=== PATIENT | female | born 1935 | race Caucasian/White ===

== ENCOUNTER 2017-12-14 13:03 | Emergency (ER) | payer MEDICARE, MEDICAID ==
[2017-12-14] MEDS ORDERED: traMADol TAB* 50 MG PO ONE ×2 (13:28→16:10)
--- OUTSIDE RECORDS SUMMARY | 2017-12-14 13:50 | XMS REPORT ---
:1935 External Reference #:[id number] Author Organization [employer] Address [address] [place] [address] [place] [address] Phone [phone] Care Team Providers Name Role Phone Sabina Rangel MD Primary Care Physician Unavailable Payers Type Date Identification Numbers Payment Provider Subscriber Medicare Primary Policy Number: [id number] Medicare Patricia Person PayID: [id number] [address] [place] [address] [facility] Part B Policy Number: [id number] Medicaid Patricia Person Group Name: 1 1 [address] PayID: [id number] [place] [address] Problems Date Description Provider Status Onset: 12/05/2017 Localized, primary osteoarthritis Addis Villalba M.D. Active Family History Date Family Member(s) Problem(s) Comments General No Current Problems Social History Type Date Description Comments Lives With Adult family home ETOH Use Drinks 1 Alcoholic Beverage Per Week Smoking Patient is a former smoker Exercise Type/Frequency Exercises sporadically Allergies, Adverse Reactions, Alerts Date Description Reaction Status Severity Comments 12/05/2017 NKDA active Medications Medication Date Status Form Strength Qnty SIG Indications Ordering Provider Tramadol HCL 12/05/ Active Tablets 50mg 90tabs 1 tab every Addis 2017 8 hours as Deejay, needed for M.DJcarlos pain Compression Active Misc 2units 20/30 thigh Addis Stockings 2017 high Endy Villalba Omeprazole / Active Capsules 20mg 1 by mouth Unknown 0000 DR every day B12 Fast 00/ Active Tablets 5000mcg sublingual Unknown Dissolve 0000 Dispers daily Amlodipine / Active Tablets 10mg 1 by mouth Unknown Besylate 0000 every day Lipitor / Active Tablets 10mg 1 by mouth Unknown 0000 every night at bedtime Singulair / Active Tablets 10mg 1 by mouth Unknown 0000 every day Magox 400 / Active Tablets 400(241.3m 1 by mouth Unknown 0000 g) mg twice a day ( taking 1 tablet by mouth daily ) Atenolol / Active Tablets 25mg 1 by mouth Unknown 0000 bid Calcium 500+D / Active Tablets 500-200mg- 1 by mouth Unknown 0000 Unit twice daily Clonazepam / Active Tablets 1mg q12H Unknown 0000 Symbicort / Active Aerosol 160-4.5mcg 2 puff twice Unknown 0000 /Act a day Medications Administered in Office Medication Date Status Form Strength Qnty SIG Indications Ordering Provider Triamcinolone 12/05/ Administered Injection Addis (Kenalog) 2017 Endy Villalba Triamcinolone 12/05/ Administered Injection Addis (Kenalog) 2017 Endy Villalba Vital Signs Date Vital Result Comment 12/05/2017 Heart Rate 67 /min BP Systolic 110 mmHg BP Diastolic 60 mmHg Respiratory Rate 16 /min Body Temperature 98.8 F Pain Level 8 Results Description No Information Procedures Date CPT Code Description Status 12/05/201744210 Inject/Drain Joint/Bursa Major W/O US Completed 12/05/201704012 Inject/Drain Joint/Bursa Major W/O US Completed Plan of Care Future Appointment(s):03/09/2018 9:30 am - [facility] - Addis Villalba M.D.M25.562 Pain in left kneeFollow up:Follow up: 4 inlwrD58.561 Pain in right kneeM25.462 Effusion, left kneeM25.461 Effusion, right kneeM17.0 Bilateral primary osteoarthritis of knee
--- NOTE | 2017-12-14 14:07 | ED ---
Complex/Multi-Sys Presentation - HPI Summary HPI Summary: A 82 y/o female TESSA presents to ED c/o diffuse cramps throughout her body reaching 4/10 in severity. As per triage, "Pt with c/o bialteral knee, ankle and hand cramping d/t arthitis. Pt is has been unable to sleep for two weeks d/ t the pain". According to the patient, for the past couple weeks she has been experiencing cramps in her feels and hands as well as her knees. She noted that she has osteoarthritis in her knees and has received shots in both of him from Dr. Villalba. She is also scheduled for an appointment with Dr. Villalba for shots in her fingers. She thinks the cramps are acting up because of her fatigue. She stated that laying down or ambulance causes cramps, making it difficult to complete routine activities and sleep. She noted that she does have pain in her legs as they feel as "they are made of plaster (heavy)". The patient can walk ( has a walker) after the cramps as gone down. Patient is a resident at [facility] and has only received Tylenol for her pain, no muscle relaxants. In the ED room , the patient had several cramp episodes and is in obvious distress. She requested sleep and pain medication. PMHx of osteoarthritis and anxiety attacks. - History Of Current Complaint Chief Complaint: EDGeneral Time Seen by Provider: 12/14/17 13:16 Hx Obtained From: Patient Onset/Duration: Sudden Onset, Lasting Weeks, Still Present Timing: Constant Severity Currently: Moderate - 4/10 Severity Initially: Moderate - 4/10 Location: Negative Aggravating Factor(s): NOTHING Alleviating Factor(s): NOTHING - Allergies/Home Medications Allergies/Adverse Reactions: Allergies Allergy/AdvReac Type Severity Reaction Status Date / Time alendronate sodium Allergy Unknown Verified 12/14/17 13:27 [From Fosamax] Reaction Details Home Medications: Home Medications Magnesium Oxide [Magnesium] 400 mg PO BID 12/14/17 [History Confirmed 12/14/17] Nabumetone TAB* [Relafen TAB*] 500 mg PO BID 12/14/17 [History Confirmed ] Omeprazole CAP* [Prilosec CAP* 20 MG] 1 cap PO DAILY 12/14/17 [History Confirmed 12/14/17] Polyethylene Glycol 3350 [Miralax] 1 packet PO DAILY PRN 12/14/17 [History Confirmed 12/14/17] traMADol TAB* [Ultram*] 25 mg PO Q6H PRN 12/14/17 [History Confirmed 12/14/17] PMH/Surg Hx/FS Hx/Imm Hx Endocrine/Hematology History: Denies: Hx Diabetes Cardiovascular History: Denies: Hx Hypertension Sensory History: Reports: Hx Glaucoma, Hx Macular Degeneration - Cancer History Cancer Type, Location and Year: Left lung cancer - Surgical History Surgery Procedure, Year, and Place: Left lung surgery, eye surgery, appendectomy and tonsilectomy. Infectious Disease History: No Infectious Disease History: Denies: Traveled Outside the [place] in Last 30 Days - Family History Known Family History: Positive: Other - AR and dementia Negative: Hypertension, Diabetes - Social History Alcohol Use: None Substance Use Type: Reports: None Smoking Status (MU): Former Smoker - Last smoke was 1978. Review of Systems Positive: Fatigue. Negative: Fever Positive: Other - POSITIVE: Leg pain, diffuse cramps All Other Systems Reviewed And Are Negative: Yes Physical Exam - Summary Physical Exam Summary: Appearance: Well appearing, no pain distress Skin: warm, dry, reflects adequate perfusion Head/face: normal Eyes: EOMI, DANIEL ENT: normal Neck: supple, non-tender Respiratory: CTA, breath sounds present Cardiovascular: RRR, pulses symmetrical Abdomen: non-tender, soft Bowel: present Musculoskeletal: bilateral calf tenderness, strength/ROM intact Neuro: normal, sensory motor intact, A&Ox3 Triage Information Reviewed: Yes Vital Signs On Initial Exam: Initial Vitals Temp Pulse Resp BP Pulse Ox 98.7 F 58 19 146/59 95 12/14/17 13:04 12/14/17 13:04 12/14/17 13:04 12/14/17 13:04 12/14/17 13:04 Vital Signs Reviewed: Yes Diagnostics - Vital Signs Vital Signs Temp Pulse Resp BP Pulse Ox 12/14/17 13:04 98.7 F 58 19 146/59 95 - Laboratory Result Diagrams: 12/14/17 14:20 12/14/17 14:20 Lab Statement: Any lab studies that have been ordered have been reviewed, and results considered in the medical decision making process. - Ultrasound No standard instances Ultrasound Interpretation Completed By: Radiologist - Venous Doppler Study: No sonographic evidence of deep vein thrombosis. ED PHYSICIAN REVIEWED THIS RADIOLOGY REPORT. Re-Evaluation - Re-Evaluation First Eval Re-Evaluation Time: 15:40 Comment: Discussed plan and discharge with patient. Complex Multi-Symp Course/Dx Course Of Treatment: A 82 y/o female TESSA presents to ED c/o diffuse cramps throughout her body reaching 4/10 in severity. According to the patient, for the past couple weeks she has been experiencing cramps in her feels and hands as well as her knees. A US and blood work was done which was all in normal limits. In the ED course, the patient recieved Ultram. Patient will be discharged with a diagnosis of musculoskeletal pain and leg cramps. Patient is to follow up with PCP in 3 days. Patient is agreeable with this plan. - Diagnoses Differential Diagnoses/HQI/PQRI: Other - musculoskeletal pain/leg cramps Provider Diagnoses: Musculoskeletal pain, Leg cramps Discharge - Sign-Out/Discharge Documenting (check all that apply): Patient Departure - DISCHARGE - Discharge Plan Condition: Stable Disposition: HOME Prescriptions: traMADol TAB* [Ultram*] 50 mg PO Q12H PRN #10 tab MDD 2 PRN Reason: Pain Patient Education Materials: Leg Cramps (ED), Musculoskeletal Pain (ED), Muscle Cramp (ED) Referrals: Sabina Rangel MD [Primary Care Provider] - 3 Days Additional Instructions: FOLLOW UP WITH PRIMARY CARE IN 3 DAYS. TAKE MEDICATION PRESCRIBED. RETURN TO ED FOR ANY NEW OR WORSENING SYMPTOMS. - Billing Disposition and Condition Condition: STABLE Disposition: Home - Attestation Statements Document Initiated by Martin: Yes Documenting Scribe: Joselo Eisenberg Provider For Whom Martin is Documenting (Include Credential): Rylan Rolle MD Scribe Attestation: Joselo Camara, scribed for Rylan Rolle MD on 12/14/17 at 1746. Scribe Documentation Reviewed: Yes Provider Attestation: The documentation as recorded by the Joselo mai accurately reflects the service I personally performed and the decisions made by me, Rylan Rolle MD
[2017-12-14 14:26] LABS: ABS Basophils 0 10^3/ul (0-0.2); ABS Eosinophils 0.1 10^3/ul (0-0.6); ABS Lymphocytes 1.6 10^3/ul (1.0-4.8); ABS Monocytes 1.1 10^3/ul (0-0.8); ABS Neutrophils 7.7 10^3/ul (1.5-7.7); ABS Nucleated RBC 0 10^3/ul; Eosinophil % 0.9 % (0-6); Hematocrit 33 % (35-47); Hemoglobin 11.2 g/dl (12.0-16.0); Lymphocyte % 15.5 % (25-47); Mean Corpuscular HGB Conc 34 g/dl (31-36); Mean Corpuscular Hemoglobin 30 pg (27-31); Mean Corpuscular Volume 89 fL (80-97); Mean Platelet Volume 7.1 um3 (7.4-10.4); Nucleated Red Blood Cells % 0; Platelet Count 326 10^3/ul (150-450); Red Blood Count 3.71 10^6/ul (4.00-5.40); Red Cell Distribution Width 16 % (10.5-15); White Blood Count 10.5 10^3/ul (3.5-10.8)
[2017-12-14 14:47] LABS: EGFR Non-African American 55.4 (>60)
--- NOTE | 2017-12-14 14:58 | RAD ---
HISTORY: Bilateral extremity pain TECHNIQUE: Multiple transverse and longitudinal ultrasound images were obtained of the veins of the bilateral lower extremities using grayscale, color Doppler, and spectral Doppler imaging with and without compression and with augmentation. FINDINGS: VEINS: The common femoral vein, deep femoral vein, femoral vein and popliteal vein are compressible throughout their course, with normal flow on color Doppler imaging and normal response to augmentation on spectral Doppler imaging. SOFT TISSUES: Grossly normal. No large popliteal fossa cyst was identified. IMPRESSION: No sonographic evidence of deep vein thrombosis.
[2017-12-14 16:25] VITALS: BP 148/65
== END 2017-12-14 16:24 | disposition home or self-care (01) ==
LOC: ED 13:03
DX: M79.605 Pain in left leg (principal); M79.604 Pain in right leg; M62.838 Other muscle spasm; Z85.118 Personal history of other malignant neoplasm of bronchus and lung; Z88.8 Allergy status to other drugs, medicaments and biological substances; Z87.891 Personal history of nicotine dependence
CPT/HCPCS: 36415; 80053; 82550; 85025; 93970; 99284; A9270-GY

== ENCOUNTER 2018-12-04 15:55 | Emergency (ER) | payer MEDICARE, MEDICAID ==
--- OUTSIDE RECORDS SUMMARY | 2018-12-04 16:17 | XMS REPORT | Continuity of Care Document ---
:1935 External Reference #:[id number] Author Name Dolly Chin Care Team Providers Name Role Phone Sabina Rangel MD Primary Care Physician Unavailable Payers Date Identification Numbers Payment Provider Subscriber Policy Number: [id number] Medicare Patricia Person PayID: [id number] [address] [place] [address] Expires: 2018 Policy Number: [id number] Medicare Patricia Person PayID: [id number] [address] [place] [address] Expires: 2018 Policy Number: [id number] Medicaid Patricia Person Group Name: 1 1 [address] PayID: [id number] [place] [address] Problems Active Problems Provider Date Localized, primary osteoarthritis Addis Villalba M.D. Onset: 12/05/2017 Family History Date Family Member(s) Observation Comments General No Current Problems Social History Type Date Description Comments Sex Unknown Lives With Adult family home ETOH Use Drinks 1 Alcoholic Beverage Per Week Tobacco Use Start: Unknown End: Patient is a former smoker Unknown Smoking Status Reviewed: 11/27/18 Patient is a former smoker Exercise Type/Frequency Exercises sporadically Allergies, Adverse Reactions, Alerts Active Allergies Reaction Severity Comments Date Fosamax 09/09/2018 Statins 09/09/2018 Uswkpmw-VUK-Pxy Reductase Inhibitors 09/09/2018 Inactive Allergies NKDA 12/05/2017 Medications Active Medications SIG Qnty Indications Ordering Date Provider Compression Stockings 20/30 thigh high 2units Addis Villalba 12/05/2017 Endy Misc Ibuprofen Unknown Tussin Unknown Cyclobenzaprine HCL take 1 tab by mouth Unknown 10mg 2-3 times a day as Tablets needed Albuterol Sulfate Unknown Nebulizer prn Unknown Tylenol Extra Strength 2 by mouth 3 times Unknown daily as needed 500mg Tablets Polyethylene Glycol dissolve one capful Unknown 3350 (17g) in 8 ounces 3350 Granules of water by mouth every 48 hours as needed constipation Dicyclomine HCL pr Unknown 10mg Capsules Paroxetine HCL 1 by mouth every Unknown 20mg day Tablets Trazodone HCL take 1 tablets by Unknown 100mg mouth at bedtime Tablets Nabumetone take one Unknown 500mg Tablets capsule/tablet by mouth twice daily as needed for pain, please stop other nsaids Losartan Potassium 1 by mouth every Unknown 50mg day Tablets Clonazepam q12H Unknown 1mg Tablets Calcium 500+D 1 by mouth twice Unknown daily [id number] Tablets Atenolol 1 by mouth bid Unknown 25mg Tablets Magox 400 1 by mouth twice a Unknown 400(241.3mg) mg day ( taking 1 Tablets tablet by mouth daily ) Singulair 1 by mouth every Unknown 10mg Tablets day Amlodipine Besylate 1 by mouth every Unknown 10mg day Tablets B12 Fast Dissolve sublingual daily Unknown 5000mcg Tablets Dispers Omeprazole 1 by mouth every Unknown 20mg Capsules day DR History Medications Gabapentin 1 tab by mouth 30caps Addis Villalba, 12/16/2017 - 300mg Capsules before bed M.D. 03/05/2018 Cyclobenzaprine HCL take 1 tab by 30tabs Addis Villalba, 12/16/2017 - 10mg mouth before M.D. 12/15/2017 Tablets bed as needed Tramadol HCL 1 tab every 8 90tabs Addis Villalba, 12/05/2017 - 50mg Tablets hours as needed M.D. 09/08/2018 for pain Lipitor 1 by mouth every Unknown - 10mg Tablets night at bedtime 03/05/2018 Symbicort 2 puff twice a Unknown - 160-4.5mcg/Act day 12/16/2017 Aerosol Cetirizine HCL 1 by mouth every Unknown - 10mg Chewtabs day 11/26/2018 Hydrocodone 1 by mouth every Unknown - Bitartrate/Acetaminophen 6 hours as 11/26/2018 needed pain 5-325mg Tablets Cyclobenzaprine HCL take 1 tab by Unknown - 10mg mouth 2-3 times 11/26/2018 Tablets a day as needed Miralax Unknown - 11/26/2018 Acetaminophen 500mg Unknown - 11/26/2018 Medications Administered in Office Medication SIG Qnty Indications Ordering Provider Date Depomedrol 40MG Addis Villalba M.D. 09/09/2018 Injection Depomedrol 40MG Addis Villalba M.D. 09/09/2018 Injection Depomedrol 40MG Addis Villalba M.D. 06/10/2018 Injection Depomedrol 40MG Addis Villalba M.D. 06/10/2018 Injection Depomedrol 40MG Addis Villalba M.D. 03/09/2018 Injection Depomedrol 40MG Addis Villalba M.D. 03/09/2018 Injection Triamcinolone (Kenalog) Addis Villalba M.D. 12/05/2017 Injection Triamcinolone (Kenalog) Addis Villalba M.D. 12/05/2017 Injection Vital Signs Date Vital Result Comment 11/27/2018 8:07am Height 65 inches 5'5" Weight 127.00 lb BP Systolic 138 mmHg BP Diastolic 78 mmHg Body Temperature 97.9 F BMI (Body Mass Index) 21.1 kg/m2 09/09/2018 10:00am Heart Rate 80 /min BP Systolic 144 mmHg BP Diastolic 82 mmHg Respiratory Rate 16 /min Body Temperature 98.6 F Pain Level 10 06/10/2018 9:41am Heart Rate 65 /min BP Systolic 124 mmHg BP Diastolic 64 mmHg Respiratory Rate 18 /min Body Temperature 97.8 F Pain Level 5 03/09/2018 10:06am Heart Rate 59 /min BP Systolic Sitting 118 mmHg BP Diastolic Sitting 64 mmHg Body Temperature 97.7 F Pain Level 5 O2 % BldC Oximetry 97 % at rest on room air 12/05/2017 2:23pm Heart Rate 67 /min BP Systolic 110 mmHg BP Diastolic 60 mmHg Respiratory Rate 16 /min Body Temperature 98.8 F Pain Level 8 Procedures Date Code Description Status 09/09/2018 Inject/Drain Joint/Bursa Major W/O US Completed 06/10/2018 Inject/Drain Joint/Bursa Major W/O US Completed 03/09/2018 Inject/Drain Joint/Bursa Major W/O US Completed 12/05/2017 Inject/Drain Joint/Bursa Major W/O US Completed Encounters Type Date Location Provider Dx Diagnosis Office Visit 11/27/2018 [facility] Addis Villalba, M25.562 Pain in left knee 8:15a [facility] M25.561 Pain in right knee M25.462 Effusion, left knee M25.461 Effusion, right knee M17.0 Bilateral primary osteoarthritis of knee Office Visit 03/09/2018 9:30a [facility] Addis Villalba M25.562 Pain in left Of [facility] M.[facility] knee M25.561 Pain in right knee M25.462 Effusion, left knee M25.461 Effusion, right knee M17.0 Bilateral primary osteoarthritis of knee Office Visit 12/05/2017 2:00p [facility] Addis Villalba, M25.562 Pain in left [facility] M.DJcarlos knee M25.561 Pain in right knee M25.462 Effusion, left knee M25.461 Effusion, right knee M17.0 Bilateral primary osteoarthritis of knee Plan of Treatment Future Appointment(s):12/09/2018 9:15 am - Addis Villalba M.D. at [facility]11/27/2018 - Addis Villalba M.D.M25.562 Pain in left kneeNew Therapy:Physical TherapyFollow up:Follow up: None [id number] Pain in right kneeM25.462 Effusion, left kneeM25.461 Effusion, right kneeM17.0 Bilateral primary osteoarthritis of knee
--- NOTE | 2018-12-04 17:16 | ED ---
Adult Trauma - HPI Summary HPI Summary: Pt is an 83 y/o F presenting to the ED with a chief complaint of recent falls. She reports leg pain d/t her arthritis, increased falls, R eye and knee pain and bruising from her fall yesterday, as well as dizziness, lightheadedness, shaking, and feeling like she was going to . She denies LOC or nausea. - History of Current Complaint Chief Complaint: EDFall Stated Complaint: FALL/HEAD INJURY PER SON Time Seen by Provider: 12/04/18 16:46 Hx Obtained From: Patient Mechanism of Injury: Fall Loss of Consciousness: no loss of consciousness Onset/Duration: Started Hours Ago, Still Present Onset of Pain: Days Onset Severity: Moderate Current Severity: Severe Pain Intensity: 8 Pain Scale Used: 0-10 Numeric Location: Head - r eye, Extremities - bilat LE Aggravating Factor(s): Movement Alleviating Factor(s): Nothing Associated Signs & Symptoms: Positive: Ecchymosis. Negative: Nausea/Vomiting, Loss of Consciousness - Allergy/Home Medications Allergies/Adverse Reactions: Allergies Allergy/AdvReac Type Severity Reaction Status Date / Time alendronate sodium Allergy Unknown Verified 12/14/17 13:27 [From Fosamax] Reaction Details Home Medications: Home Medications Acetaminophen [Acetaminophen Extra Strength] 1,000 mg PO TID PRN MDD 3000 mg [History Confirmed 12/04/18] Albuterol 2.5MG/3ML (0.083%)* [Ventolin 2.5 MG/3 ML NEB.ANGEL LUIS*] 2.5 mg INH Q6H PRN 12/04/18 [History Confirmed 12/04/18] Calcium Carb/Vit D3/Minerals [Calcium 600+D Plus [place]] 1 tab PO BID 12/04/18 [ History Confirmed 12/04/18] Cyanocobalamin (Vitamin B-12) [Vitamin B-12] 2,500 mcg SL DAILY 12/04/18 [ History Confirmed 12/04/18] Cyclobenzaprine TAB* [Flexeril 10 MG TAB*] 10 mg PO BEDTIME PRN 12/04/18 [ History Confirmed 12/04/18] Diclofenac 1% GEL (NF) [Voltaren 1% GEL (NF)] 1 applic TOPICAL TID PRN 12/04/18 [History Confirmed 12/04/18] Lactose-Reduced Food [Boost] 237 ml PO BID 12/04/18 [History Confirmed 12/04/18] Losartan TAB* [Cozaar TAB*] 50 mg PO DAILY 12/04/18 [History Confirmed 12/04/18] Magnesium Oxide TAB* [MagOx 400 TAB*] 400 mg PO BID 12/04/18 [History Confirmed 12/04/18] Nabumetone TAB* [Relafen TAB*] 500 mg PO BID 12/04/18 [History Confirmed ] Omeprazole CAP (NF) [Prilosec CAP* 20 MG] 20 mg PO DAILY 12/04/18 [History Confirmed 12/04/18] PARoxetine HCL TAB* [Paxil TAB*] 20 mg PO DAILY 12/04/18 [History Confirmed ] Polyethylene Glycol 3350* [Miralax*] 17 gm PO DAILY 12/04/18 [History Confirmed 12/04/18] traZODone TAB* [Desyrel TAB*] 100 mg PO BEDTIME 12/04/18 [History Confirmed ] PMH/Surg Hx/FS Hx/Imm Hx Previously Healthy: Yes Endocrine/Hematology History: Denies: Hx Diabetes Cardiovascular History: Denies: Hx Hypertension Sensory History: Reports: Hx Glaucoma, Hx Macular Degeneration Opthamlomology History: Reports: Hx Glaucoma, Hx Macular Degeneration - Cancer History Cancer Type, Location and Year: Left lung cancer - Surgical History Surgery Procedure, Year, and Place: Left lung surgery, eye surgery, appendectomy and tonsilectomy. Infectious Disease History: No Infectious Disease History: Denies: Traveled Outside the [place] in Last 30 Days - Family History Known Family History: Positive: Other - [place] and dementia Negative: Hypertension, Diabetes - Social History Alcohol Use: Rare Alcohol Amount: "once in a [place]" Hx Substance Use: No Substance Use Type: Reports: None Hx Tobacco Use: Yes Smoking Status (MU): Former Smoker Review of Systems Positive: Chills, Other - increased falls Positive: Other - R eye pain Negative: Nausea Positive: Myalgia - R knee from fall Positive: Bruising Neurological: Negative - LOC, Other - lightheadedness, dizziness Positive: Other - "feeling like I was going to " All Other Systems Reviewed And Are Negative: Yes Physical Exam - Summary Physical Exam Summary: Appearance: The patient is well-nourished in no acute distress and in no acute pain. Skin: The skin is warm and dry and skin color reflects adequate perfusion. There is a skin tear present on the R knee, and a periorbital hematoma on the R eye. HEENT: The head is normocephalic and atraumatic. The pupils are equal and reactive. The conjunctivae are clear and without drainage. Nares are patent and without drainage. Mouth reveals moist mucous membranes and the throat is without erythema and exudate. The external ears are intact. The ear canals are patent and without drainage. The tympanic membranes are intact. Neck: The neck is supple with full range of motion and non-tender. There are no carotid bruits. There is no neck vein distension. Respiratory: Chest is non-tender. Lungs are clear to auscultation and breath sounds are symmetrical and equal. Cardiovascular: Heart is regular rate and rhythm. There is no murmur or rub auscultated. There is no peripheral edema and pulses are symmetrical and equal. Abdomen: The abdomen is soft and non-tender. There are normal bowel sounds heard in all four quadrants and there is no organomegaly palpated. Musculoskeletal: There is no back tenderness noted. Extremities are non-tender with full range of motion. There is good capillary refill. There is no peripheral edema or calf tenderness elicited. Neurological: Patient is alert and oriented to person, place and time. The patient has symmetrical motor strength in all four extremities. Cranial nerves are grossly intact. Deep tendon reflexes are symmetrical and equal in all four extremities. Psychiatric: The patient has an appropriate affect and does not exhibit any anxiety or depression. Triage Information Reviewed: Yes Vital Signs On Initial Exam: Initial Vitals Temp Pulse Resp BP Pulse Ox 97.7 F 66 16 142/65 96 12/04/18 15:57 12/04/18 15:57 12/04/18 15:57 12/04/18 15:57 12/04/18 15:57 Vital Signs Reviewed: Yes - Vendor Coma Scale Best Eye Response: 4 - Spontaneous Best Motor Response: 6 - Obeys Commands Best Verbal Response: 5 - Oriented Coma Scale Total: 15 Diagnostics - Vital Signs Vital Signs Temp Pulse Resp BP Pulse Ox 12/04/18 15:57 97.7 F 66 16 142/65 96 - Laboratory Result Diagrams: 12/04/18 17:32 12/04/18 17:32 Lab Statement: Any lab studies that have been ordered have been reviewed, and results considered in the medical decision making process. - CT Brain CT CT Interpretation Completed By: Radiologist Summary of CT Findings: 1. No acute intracranial findings. Age-related atrophy and chronic white matter ischemic change. 2. Small subcutaneous hematoma in right supraorbital region. ED physician has reviewed this report. - EKG 1725 Cardiac Rate: Bradycardia - 57bpm EKG Rhythm: Sinus Bradycardia ST Segment: Normal Ectopy: None Summary of EKG Findings: EKG at 1725 shows sinus bradycardia at 57bpm with normal ST, no ectopy, and no STEMI. Adult Trauma Course/Dx - Course Course Of Treatment: Ms. Person has a long history of falling but in the last couple of months it's been worse. She fell yesterday and got a right black eye as well as a skin tear on her right knee. She was nontoxic in appearance with stable vitals here. She came in primarily because she was lying in bed at about 3:00 and she is began to feel like she was going to . She has difficult time elaborating but says she did not have chest pain or shortness of breath. She was kept on a monitor here and worked up including a delayed troponin. I would describe this as near-syncope and cannot find an acute reason for it at this time. I recommended close follow-up with her PCP. - Diagnoses Provider Diagnoses: Frequent falls, Chronic pain, Periorbital hematoma Discharge - Sign-Out/Discharge Documenting (check all that apply): Patient Departure Patient Received Moderate/Deep Sedation with Procedure: No - Discharge Plan Condition: Stable Disposition: HOME Prescriptions: traMADol TAB* [Ultram*] 50 mg PO Q6HR PRN #20 tab MDD 4 PRN Reason: Pain Patient Education Materials: Fall Prevention for Older Adults (ED) Referrals: Sabina Rangel MD [Primary Care Provider] - Additional Instructions: Please take your prescribed medications as instructed. Follow up with your primary care provider in 2-3 days. Return to the emergency department with any new or worsening symptoms. - Billing Disposition and Condition Condition: STABLE Disposition: Home - Attestation Statements Document Initiated by Scribe: Yes Documenting Scribe: Shantell Hale Provider For Whom Scribe is Documenting (Include Credential): Jesse Ayala MD. Scribe Attestation: I, Shantell Hale, scribed for Jesse Ayala MD. on 12/04/18 at 2117. Scribe Documentation Reviewed: Yes Provider Attestation: The documentation as recorded by the scribe, Shantell Hale accurately reflects the service I personally performed and the decisions made by me, Jesse Ayala MD. Status of Scribe Document: Viewed
[2018-12-04 17:41] LABS: ABS Basophils 0.1 10^3/ul (0-0.2); ABS Eosinophils 0.4 10^3/ul (0-0.6); ABS Lymphocytes 1.6 10^3/ul (1.0-4.8); ABS Neutrophils 5.2 10^3/ul (1.5-7.7); Eosinophil % 4.7 %; Hematocrit 35 % (35-47); Hemoglobin 11.8 g/dL (12.0-16.0); Lymphocyte % 19.3 %; Mean Corpuscular HGB Conc 34 g/dL (31-36); Mean Corpuscular Hemoglobin 29 pg (27-31); Mean Corpuscular Volume 87 fL (80-97); Mean Platelet Volume 7.7 fL (7.4-10.4); Platelet Count 321 10^3/uL (150-450); Red Blood Count 4.01 10^6 /uL (3.70-4.87); Red Cell Distribution Width 15 % (10-15); White Blood Count 8.2 10^3/uL (3.5-10.8)
[2018-12-04 17:59] LABS: Albumin 3.9 g/dL (3.2-5.2); Albumin/Globulin Ratio 1.6 (1-3); BUN/Creatinine Ratio 14.7 (8-20); Calcium 9.5 mg/dL (8.6-10.3); EGFR African American 53.7 (>60); EGFR Non-African American 44.4 (>60); Globulin 2.5 g/dL (2-4); Magnesium 2.1 mg/dL (1.9-2.7); Potassium 4.1 mmol/L (3.5-5.0); Total Bilirubin 0.2 mg/dL (0.2-1.0); Total Protein 6.4 g/dL (6.4-8.9)
[2018-12-04 18:05] LABS: INR 0.92 (0.82-1.09)
[2018-12-04 18:31] LABS: TSH (Thyroid Stimulating Horm) 0.96 mcIU/mL (0.34-5.60)
[2018-12-04 20:41] VITALS: BP 132/71
== END 2018-12-04 20:37 | disposition home or self-care (01) ==
LOC: ED 15:55
DX: S05.11XA Contusion of eyeball and orbital tissues, right eye, initial encounter (principal); S81.011A Laceration without foreign body, right knee, initial encounter; W19.XXXA Unspecified fall, initial encounter; Z91.81 History of falling; Y92.9 Unspecified place or not applicable; G89.29 Other chronic pain; R00.1 Bradycardia, unspecified; R42 Dizziness and giddiness; Z85.118 Personal history of other malignant neoplasm of bronchus and lung; Z88.8 Allergy status to other drugs, medicaments and biological substances; Z87.891 Personal history of nicotine dependence
CPT/HCPCS: 36415; 70450; 80053; 83605; 83735; 84443; 84484; 85025; 85610; 93005; 99283